=== PATIENT | male | born 1990 | race Two or more races ===

== ENCOUNTER 2016-12-21 18:42 | Emergency (ER) | payer MEDICAID ==
[~2016-12-21] VITALS: Ht 188 cm; Wt 100.0 kg
[2016-12-21 18:52] VITALS: BP 142/86
[2016-12-21] MEDS ORDERED: FLUORESCEIN SODIUM 1MG/STRIP OP ONE (19:45)
[2016-12-21] MEDS ORDERED: TETRACAINE 0.5% OPHTH DROPS 4ML OP ONE (19:45)
[2016-12-21] MEDS ORDERED: BALANCED SALT IRRIG SOLN 15ML IO ONE (19:45)
[2016-12-21] MEDS ORDERED: TETANUS, DIPHTHERIA, PERTUSSIS VAC/PF 0.5ML (>7YR OLD) IM ONE (20:45)
== END 2016-12-21 21:13 | disposition home or self-care (01) ==
LOC: ER 18:43
DX: T15.00XA Foreign body in cornea, unspecified eye, initial encounter (principal); X58.XXXA Exposure to other specified factors, initial encounter; Y93.89 Activity, other specified; Y92.9 Unspecified place or not applicable; Y99.8 Other external cause status
CPT/HCPCS: 90471; 90715; 99283